=== PATIENT | female | born 1970 | race Hispanic/Latino ===

== ENCOUNTER 2019-12-31 13:24 | Emergency (ER) | payer OTHER ==
[~2019-12-31] VITALS: Ht 165.1 cm; Wt 83.9 kg
[2019-12-31] MEDS ORDERED: PREDNISONE 20 MG TAB ONE (15:14)
[2019-12-31] MEDS ORDERED: CYCLOBENZAPRINE HCL 10 MG TAB ONE (15:14)
[2019-12-31] MEDS ORDERED: KETOROLAC TROMETHAMINE 30 MG/ML VIAL ONE (15:15)
--- NOTE | 2019-12-31 15:55 | Diagnostic Imaging Report ---
Exams: Head and cervical spine CTs without IV contrast History: Fall, pain Comparison studies: Facial and left arm numbness. Technique: Axial images were obtained from the brain and cervical spine. Coronal and sagittal images reconstructed from the axial data. Dose modulation, iterative reconstruction, and/or weight based adjustment of the mA/kV was utilized to reduce the radiation dose to as low as reasonably achievable. Intravenous contrast: None Findings: Head CT: Scalp: No abnormalities. Bones: No fractures, blastic or lytic lesions. Extra-axial spaces: No masses. No fluid collections. Brain sulci: Appropriate for age. Ventricles: Normal in size and configuration. No hydrocephalus. Parenchyma: No abnormal densities. No masses, acute hemorrhage, acute or chronic vascular insults. Sellar/suprasellar region: Mildly expanded, mostly CSF filled sella, a nonspecific finding. Craniocervical junction: The foramen magnum is patent. No Chiari one malformation. Included paranasal sinuses: Clear. Middle ear and mastoid cavities: Clear. Cervical spine CT: Fractures: None. Soft tissues: No gross acute abnormalities. Atlantoaxial articulation: Intact. Alignment: Normal lordosis. No scoliosis. Cervicomedullary junction: No abnormalities. The foramen magnum is patent. Vertebrae: No infection or neoplasm. Degenerative changes: None. Disc height is maintained. Patent canal and foramina. IMPRESSION: Head CT: No abnormalities. Cervical spine CT: 1. No abnormalities. 2. Cannot exclude ligament, spinal cord and or vascular abnormalities on the basis of this examination. Signed by: Dr. Fidel Monroe M.D. on 12/31/2019 3:52 PM
[2019-12-31] MEDS ORDERED: NAPROXEN250 MG PO (16:43)
[2019-12-31] MEDS ORDERED: CYCLOBENZAPRINE10 MG PO (16:45)
[2019-12-31] MEDS ORDERED: TYLENOL WITH C1 EACH PO (16:47)
[2019-12-31] MEDS ORDERED: MEDROL4 MG PO (16:51)
--- NOTE | 2019-12-31 16:52 | NUR ---
see paper down time charting for meds and labs ordered for charges. See paper charting for radiology ordered.
[2019-12-31 16:59] VITALS: BP 121/71
== END 2019-12-31 17:08 | disposition home or self-care (01) ==
LOC: FSED 13:24
DX: M54.2 Cervicalgia (principal); M54.89 Other dorsalgia; M25.512 Pain in left shoulder; M79.622 Pain in left upper arm; M54.12 Radiculopathy, cervical region
CPT/HCPCS: 70450; 72125; 80053; 82553; 84484; 85025; 93005; 96374; 99284; J1885; J7512

== ENCOUNTER 2023-01-21 12:41 | Emergency (ER) | payer SELFPAY ==
[~2023-01-21] VITALS: Ht 165.1 cm; Wt 85.7 kg
[~2023-01-21 12:41] MED LIST: CYCLOBENZAPRINE10 MG PO; MEDROL4 MG PO; NAPROXEN250 MG PO; TYLENOL WITH C1 EACH PO
[2023-01-21] MEDS ORDERED: SODIUM CHLORIDE 0.9% 1000ML 1,000 ML IV SCH (13:30)
[2023-01-21] MEDS ORDERED: IOPAMIDOL 370 MG/ML 100 ML INFUS..BTL INJ ONE (14:35)
[2023-01-21] MEDS ORDERED: SODIUM CHLORIDE 0.9% 100 ML ONE (14:35)
[2023-01-21] MEDS ORDERED: SODIUM CHLORIDE 0.9% 1000ML 1,000 ML ONE (15:01)
[2023-01-21] MEDS ORDERED: ACETAMINOPHEN 325 MG TAB PO ONE (16:45)
[2023-01-21] MEDS ORDERED: ACETAMINOPHEN 325 MG TAB ONE (16:51)
== END 2023-01-21 16:56 | disposition home or self-care (01) ==
LOC: FSED 12:45
DX: R51.9 Headache, unspecified (principal); H54.7 Unspecified visual loss; D64.9 Anemia, unspecified; N92.0 Excessive and frequent menstruation with regular cycle; R03.0 Elevated blood-pressure reading, without diagnosis of hypertension
CPT/HCPCS: 70450; 70496; 70498; 80053; 82553; 84484; 85025; 93005; 99284; J7030; J7050; Q9967

== ENCOUNTER 2025-01-22 12:44 | Emergency (ER) | payer OTHER ==
[~2025-01-22] VITALS: Ht 165.1 cm; Wt 85.7 kg
[2025-01-22 12:47] VITALS: PULSE 72; RESP 18; TEMP 98.2; O2SAT 99
[2025-01-22] MEDS: FLUORESCEIN SOD(OPTH) 1 MG STRP OP ONE ×2 (14:24→14:50)
[2025-01-22] MEDS ORDERED: TOBRADEX ST EYE5 ML OU (14:44)
[2025-01-22] MEDS ORDERED: BACTRIM DS TAB1 EACH PO (14:45)
== END 2025-01-22 14:58 | disposition home or self-care (01) ==
LOC: FSED 13:15
DX: H00.014 Hordeolum externum left upper eyelid (principal); H00.011 Hordeolum externum right upper eyelid; D64.9 Anemia, unspecified
CPT/HCPCS: 99283